=== PATIENT | female | born 1975 | race Caucasian/White ===

== ENCOUNTER → 2021-04-07 | Outpatient (CLI) | payer OTHER ==
--- NOTE | 2021-04-07 09:56 | RAD ---
EXAM: Pelvic sonogram. HISTORY: Fibroids. Menorrhagia. Dysmenorrhea. TECHNIQUE: Transabdominal and transvaginal sonographic imaging of the pelvis was performed. COMPARISON: None. FINDINGS: The uterus is retroverted. The uterus measures 8.3 x 5.1 x 4.6 cm. There is an intrauterine contraceptive device in expected position within the endometrial cavity. The ovaries demonstrate nor mal blood flow. There is a 4.5 x 2.8 x 1.7 cm simple appearing right ovarian cyst. There are small bi lateral ovarian antral follicles. There is a 2.2 x 1.9 x 1.9 cm fibroid within the uterine fundus. Th ere is a small amount of free fluid in the right adnexa. IMPRESSION: 1. 2.2 cm uterine fibroid. 2. IUD in expected position. This obscures the endometrial stripe. No endometrial thickening is seen. 3. 4.5 cm simple appearing right ovarian cyst. 4. Small amount of right adnexal free fluid. Electronically signed by: Telma Wiseman MD (04/07/2021 9:53 AM) [id number]
== END ==
LOC: US 07:50
PROVIDERS: ATTEND Obstetrics & Gynecology
DX: D25.9 Leiomyoma of uterus, unspecified (principal); N85.4 Malposition of uterus; Z87.42 Personal history of other diseases of the female genital tract
CPT/HCPCS: 76830; 76856